=== PATIENT | female | born 1980 | race Caucasian/White ===

== ENCOUNTER 2018-11-30 16:53 | Emergency (ER) | payer SELFPAY ==
--- NOTE | 2018-11-30 17:09 | PDOC ---
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, took motrin with no effect Patient on brief exam:FROM but noted discomfort w/ lat raise Patient ordered for: shoulder xray patient to proceed to the ED Discharge Disposition - Diagnosis Shoulder pain Qualifiers: Chronicity: acute Laterality: right Qualified Code(s): M25.511 - Pain in right shoulder - Discharge Dispostion Disposition: HOME Condition at time of disposition: Stable - Prescriptions Prescriptions: Ibuprofen 600 mg PO Q6H #30 tablet - Referrals Referrals: Justyn Sánchez DO [Staff Physician] - Alex Kelley MD [Staff Physician] - - Patient Instructions Printed Discharge Instructions: DI for Shoulder Pain Additional Instructions: you were evaluated for your shoulder pain today. Please follow up with orthopedics for further management and evaluation of your symptoms. The pain is most likely residual from the dislocation you had 5 weeks ago. Please take Motrin 600 mg every 6 hours for pain. Wear the sling for comfort. Do not sleep with it or shower with it on. Return to the ER for any new or worsening symptoms. - Post Discharge Activity Work/School Note: Back to Work
[2018-11-30 17:19] VITALS: BP 122/66; PULSE 84; TEMP 98.6; BMI 23.6
[2018-11-30] MEDS ORDERED: KETOROLAC TROMETHAMINE 60 MG/2 ML VIAL IM ONE (17:56)
[2018-11-30] MEDS ORDERED: KETOROLAC TROMETHAMINE 60 MG/2 ML VIAL ONE (17:59)
--- NOTE | 2018-11-30 18:01 | PDOC ---
History of Present Illness - General Chief Complaint: Pain, Acute Stated Complaint: R/SHOULDER/PAIN Time Seen by Provider: 11/30/18 17:03 History Source: Patient Exam Limitations: No Limitations Past History - Travel Traveled outside of the country in the last 30 days: No Close contact w/someone who was outside of country & ill: No - Past Medical History Allergies/Adverse Reactions: Allergies Allergy/AdvReac Type Severity Reaction Status Date / Time No Known Allergies Allergy Verified 11/30/18 17:08 Home Medications: Ambulatory Orders Ibuprofen 600 mg PO Q6H #30 tablet 11/30/18 - Suicide/Smoking/Psychosocial Hx Smoking History: Never smoked Review of Systems - Review of Systems Able to Perform ROS?: Yes Comments:: 11/30/18 18:00 CONSTITUTIONAL: Absent: fever, chills, diaphoresis, generalized weakness, malaise, loss of appetite HEENT: Absent: rhinorrhea, nasal congestion, throat pain, throat swelling, difficulty swallowing, mouth swelling, ear pain, eye pain, visual Changes MUSCULOSKELETAL: Present: R shoulder pain Absent: myalgia, joint swelling SKIN: Absent: rash, itching, pallor NEUROLOGIC: Absent: headache, focal weakness or paresthesias, dizziness, unsteady gait, seizure, mental status changes, bladder or bowel incontinence PSYCHIATRIC: Absent: anxiety, depression, suicidal or homicidal ideation, hallucinations. Is the patient limited Amharic proficient: No *Physical Exam - Vital Signs Last Vital Signs Temp Pulse Resp BP Pulse Ox 98.6 F 84 18 122/66 99 11/30/18 17:00 11/30/18 17:00 11/30/18 17:00 11/30/18 17:00 11/30/18 17:00 - Physical Exam Comments: 11/30/18 18:01 GENERAL: The patient is awake, alert, and fully oriented, in no acute distress. HEAD: Normal with no signs of trauma. EYES: Pupils equal, round and reactive to light, extraocular movements intact, sclera anicteric, conjunctiva clear. EXTREMITIES: Full ROM the R shoulder with pain on movement. No TTP at this time. (+) apprehension sign. Normal range of motion, no edema. NEUROLOGICAL: Normal speech, normal gait. PSYCH: Normal mood, normal affect. SKIN: Warm, Dry, normal turgor, no rashes or lesions noted. Medical Decision Making - Medical Decision Making 11/30/18 18:03 the patient is a 38-year-old female with no past medical history who presents to the ER with right shoulder pain. Patient states she was working out in the gym approximately 5 weeks ago when she felt her shoulder pop out She states that shortly after popped out it popped right back in. 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 Since going back to work she notes that she has a lot of pain in the shoulder especially with rotational movements. Denies fevers, chills, numbness, tingling and weakness the affected extremity. Pt is R hand dominant. A/P: Right shoulder pain On exam patient with full range of motion however pain with flexion and extension of the shoulder. Positive apprehension sign test. Pt is neurovascularally intact. X-ray of the right shoulder: no dislocations or fractures Suspect pain d/t reported dislocation 5 weeks ago Toradol given for pain and sling applied Will refer to ortho for further management. DC home I discussed the physical exam findings, ancillary test results and final diagnoses with the patient. I answered all of the patient's questions. The patient was satisfied with the care received and felt comfortable with the discharge plan and treatment plan. The Patient agrees to follow up with the primary care physician/specialist within 24-72 hours. Return precautions were given. *DC/Admit/Observation/Transfer Diagnosis at time of Disposition: Shoulder pain Qualifiers: Chronicity: acute Laterality: right Qualified Code(s): M25.511 - Pain in right shoulder - Discharge Dispostion Disposition: HOME Condition at time of disposition: Stable Decision to Admit order: No - Prescriptions Prescriptions: Ibuprofen 600 mg PO Q6H #30 tablet - Referrals Referrals: Alex Kelley MD [Staff Physician] - Justyn Sánchez DO [Staff Physician] - - Patient Instructions Printed Discharge Instructions: DI for Shoulder Pain Additional Instructions: you were evaluated for your shoulder pain today. Please follow up with orthopedics for further management and evaluation of your symptoms. The pain is most likely residual from the dislocation you had 5 weeks ago. Please take Motrin 600 mg every 6 hours for pain. Wear the sling for comfort. Do not sleep with it or shower with it on. Return to the ER for any new or worsening symptoms. - Post Discharge Activity Forms/Work/School Notes: Back to Work
== END 2018-11-30 18:44 | disposition home or self-care (01) ==
LOC: JERFT 16:53 → JER 16:53 → JERFT 18:44
PROC: 3E0233Z Introduction of Anti-inflammatory into Muscle, Percutaneous Approach (ICD-10-PCS; principal; 2018-11-30)
DX: M25.511 Pain in right shoulder (principal)
CPT/HCPCS: 73030-TC-RT-FY; 99281-25

== ENCOUNTER 2019-09-27 10:21 | Emergency (ER) | payer OTHER ==
--- NOTE | 2019-09-27 10:33 | PDOC ---
History of Present Illness - General Chief Complaint: Pain, Acute Stated Complaint: ABD PAIN Time Seen by Provider: 09/27/19 10:31 History Source: Patient Exam Limitations: No Limitations - History of Present Illness Initial Comments: 39 yo F presents with 3 day history of crampy suprapubic pain associated with gas. She states it has been worsening over the past 3 days, now moderate to severe, suprapubic, radiating to LLQ. No back pain, no f/c. Denies N/V, dysuria, hematuria. Pain is constant, worse with palpation. Past History - Medical History Allergies/Adverse Reactions: Allergies Allergy/AdvReac Type Severity Reaction Status Date / Time No Known Allergies Allergy Verified 09/27/19 10:27 Home Medications: Ambulatory Orders Ibuprofen 600 mg PO Q6H PRN 09/27/19 Phenazopyridine HCl [Pyridium -] 100 mg PO ONCE 09/27/19 COPD: No - Psycho-Social/Smoking History Smoking History: Never smoked Review of Systems - Review of Systems Able to Perform ROS?: Yes Comments:: GENERAL/CONSTITUTIONAL: No fever or chills. No weakness. HEAD, EYES, EARS, NOSE AND THROAT: No change in vision. No ear pain or disch arge. No sore throat. CARDIOVASCULAR: No chest pain or shortness of breath. RESPIRATORY: No cough, wheezing, or hemoptysis. GASTROINTESTINAL: No nausea, vomiting, diarrhea or constipation. +LLQ and michel prapubic abd pain GENITOURINARY: No dysuria, frequency, or change in urination. MUSCULOSKELETAL: No joint or muscle swelling or pain. No neck or back pain. SKIN: No rash. NEUROLOGIC: No headache, vertigo, loss of consciousness, or change in strength/sensation. ENDOCRINE: No increased thirst. No abnormal weight change. HEMATOLOGIC/LYMPHATIC: No anemia, easy bleeding, or history of blood clots. ALLERGIC/IMMUNOLOGIC: No hives or skin allergy. *Physical Exam - Physical Exam GENERAL: Awake, alert, and fully oriented, in no acute distress HEAD: No signs of trauma EYES: PERRLA, EOMI, sclera anicteric, conjunctiva clear ENT: Auricles normal inspection, hearing grossly normal, nares patent, oropharynx clear without exudates. Moist mucosa NECK: Normal ROM, supple, no lymphadenopathy, JVD, or masses LUNGS: Breath sounds equal, clear to auscultation bilaterally. No wheezes, and no crackles HEART: Regular rate and rhythm, normal S1 and S2, no murmurs, rubs or gallops ABDOMEN: Soft, +LLQ tenderness with guarding, normoactive bowel sounds. +Involuntary guarding, no rebound. No masses EXTREMITIES: Normal range of motion, no edema. No clubbing or cyanosis. No cords, erythema, or tenderness NEUROLOGICAL: Cranial nerves II through XII grossly intact. Normal speech, normal gait. Motor and sensation intact SKIN: Warm, dry, normal turgor, no rashes or lesions noted. Medical Decision Making - Medical Decision Making 09/27/19 11:28 DDx includes ruptured ovarian cyst, ovarian torsion, diverticulitis, UTI. 09/27/19 11:40 UA is nitrite+, suggesting UTI. Will obtain sono to r/o torsion. Discharge - Discharge Information Problems reviewed: Yes Clinical Impression/Diagnosis: UTI (urinary tract infection) Qualifiers: Urinary tract infection type: acute cystitis Hematuria presence: without hematuria Qualified Code(s): N30.00 - Acute cystitis without hematuria Condition: Stable Disposition: HOME - Admission No - Follow up/Referral Referrals: Asa Mcguire MD [Primary Care Provider] - - Patient Discharge Instructions - Post Discharge Activity
[2019-09-27 10:34] VITALS: BP 112/78; PULSE 92; TEMP 98.6; BMI 23.6
[2019-09-27 11:25] LABS: HCG,QUALITATIVE URINE NEGATIVE
[2019-09-27 11:26] LABS: EPITHELIAL CELLS MODERATE /hpf; URINE MUCUS 1+
[2019-09-27] MEDS ORDERED: IBUPROFEN 600 MG TABLET (FP) PO ONE ×2 (12:09→12:11)
[2019-09-27] MEDS ORDERED: SULFAMETHOXAZOLE/TRIMETHOPRIM 800MG/160MG D.S. TABLET PO ONE (12:09)
[2019-09-27] MEDS ORDERED: SULFAMETHOXAZOLE/TRIMETHOPRIM 800MG/160MG D.S. TABLET ONE (12:10)
== END 2019-09-27 15:24 | disposition home or self-care (01) ==
LOC: FER 10:21
DX: N30.00 Acute cystitis without hematuria (principal)
CPT/HCPCS: 76817-TC; 76856-TC; 81003; 81015; 84703; 99285-25

== ENCOUNTER 2022-04-23 10:16 | Emergency (ER) | payer OTHER ==
[2022-04-23 10:23] VITALS: RESP 18; TEMP 98.3; BMI 25.4
[2022-04-23 11:29] LABS: BASO % 0.9 % (0-2.0); EOS % 3.6 % (0-4.5); HEMATOCRIT 40.2 % (32.4-45.2); HEMOGLOBIN 13.6 GM/dL (10.7-15.3); LYMPH % 26.9 % (8-40); MCH 28.8 pg (25.7-33.7); MCHC 33.9 g/dl (32.0-36.0); MEAN CELL VOLUME 85.1 fl (80-96); MEAN PLT VOLUME 7.4 fl (7.5-11.1); MONO % 7.3 % (3.8-10.2); NEUT % 61.3 % (42.8-82.8); PLATELET COUNT 352 10^3/uL (134-434); RBC 4.73 M/mm3 (3.60-5.2); RDW 13.5 % (11.6-15.6); WHITE BLOOD COUNT 6.1 K/mm3 (4.0-10.0)
[2022-04-23 11:41] LABS: CALCIUM 9.6 mg/dL (8.5-10.1)
[2022-04-23 11:42] LABS: BLOOD UREA NITROGEN 9.5 mg/dL (7-18)
[2022-04-23 11:44] LABS: CREATININE 0.6 mg/dL (0.55-1.3)
[2022-04-23 11:46] LABS: BILIRUBIN,TOTAL 0.8 mg/dL (0.2-1); TOT PROT 7.9 g/dl (6.4-8.2)
[2022-04-23 12:06] LABS: PH,URINE 8.5 (5.0-8.0); URINE APPEARANCE CLEAR; URINE BILIRUBIN NEGATIVE (NEGATIVE); URINE COLOR YELLOW; URINE GLUCOSE (UA) NEGATIVE (NEGATIVE); URINE KETONE NEGATIVE (NEGATIVE); URINE LEUK ESTERASE NEGATIVE (NEGATIVE); URINE NITRITE NEGATIVE (NEGATIVE); URINE PROTEIN NEGATIVE (NEGATIVE); URINE UROBILINOGEN 0.2 mg/dL (0.2-1.0)
[2022-04-23 12:09] LABS: HCG,QUALITATIVE URINE Negative
[2022-04-23] MEDS ORDERED: morphine CARPU-JECT 4 MG/1 ML DISP.SYRIN IVPUSH ONE (13:20)
[2022-04-23] MEDS ORDERED: SODIUM CHLORIDE 0.9% 500 ML INFUS.BAG IV ONE (13:20)
[2022-04-23] MEDS ORDERED: ONDANSETRON 4 MG/2 ML VIAL IVPUSH ONE (13:21)
[2022-04-23] MEDS ORDERED: morphine SULFATE 4 MG/ML VIAL ONE (13:26)
[2022-04-23] MEDS ORDERED: ONDANSETRON 4 MG/2 ML VIAL ONE (13:26)
[2022-04-23 16:51] VITALS: BP 105/72; PULSE 62
== END 2022-04-23 18:04 | disposition home or self-care (01) ==
LOC: JER 10:16
PROC: 3E033NZ Introduction of Analgesics, Hypnotics, Sedatives into Peripheral Vein, Percutaneous Approach (ICD-10-PCS; principal; 2022-04-23)
PROC: 3E033GC Introduction of Other Therapeutic Substance into Peripheral Vein, Percutaneous Approach (ICD-10-PCS; 2022-04-23)
DX: R10.32 Left lower quadrant pain (principal); R10.31 Right lower quadrant pain
CPT/HCPCS: 36415; 74177-TC; 76830-TC; 80053; 81003; 83690; 84703; 85025; 86850; 86900; 86901; 87086; 99285-25; Q9967

== ENCOUNTER 2023-02-24 18:05 | Emergency (ER) | payer OTHER ==
[2023-02-24 18:11] VITALS: BP 125/79; PULSE 96; RESP 16; TEMP 98.2; BMI 25.0
[2023-02-24] MEDS ORDERED: ACETAMINOPHEN 1000 MG/100 ML BAG IVPB ONE (18:25)
[2023-02-24] MEDS ORDERED: ONDANSETRON 4 MG/2 ML VIAL IVPUSH ONE (18:25)
[2023-02-24] MEDS ORDERED: MAG HYDROX/AL HYDROX/SIMETH 30 ML UNIT-DOSE CUP PO ONE (18:25)
[2023-02-24] MEDS ORDERED: FAMOTIDINE 20 MG/50 ML IVPB 20 MG/50 ML MG IVPB ONE (18:25)
[2023-02-24] MEDS ORDERED: ONDANSETRON 4 MG/2 ML VIAL ONE (19:00)
[2023-02-24] MEDS ORDERED: MAG HYDROX/AL HYDROX/SIMETH 30 ML UNIT-DOSE CUP ONE (19:00)
[2023-02-24] MEDS ORDERED: ACETAMINOPHEN INJECTION 100 ML IVPB ONE (19:00)
[2023-02-24] MEDS ORDERED: FAMOTIDINE 10 MG/ML VIAL IVPB ONE (19:01)
[2023-02-24 19:32] LABS: BASO % 0.7 % (0-2.0); EOS % 1.6 % (0-4.5); HEMATOCRIT 38.9 % (32.4-45.2); HEMOGLOBIN 12.8 GM/dL (10.7-15.3); LYMPH % 17.8 % (8-40); MCH 28.1 pg (25.7-33.7); MCHC 32.9 g/dl (32.0-36.0); MEAN CELL VOLUME 85.4 fl (80-96); MEAN PLT VOLUME 7.3 fl (7.5-11.1); NEUT % 72.9 % (42.8-82.8); PLATELET COUNT 366 10^3/uL (134-434); RBC 4.56 M/mm3 (3.60-5.2); RDW 13.6 % (11.6-15.6); WHITE BLOOD COUNT 8.8 K/mm3 (4.0-10.0)
[2023-02-24 19:56] LABS: POTASSIUM 4.1 mmol/L (3.5-5.1)
[2023-02-24 19:59] LABS: ALBUMIN 3.9 g/dl (3.4-5.0); BLOOD UREA NITROGEN 9.2 mg/dL (7-18); CALCIUM 9.2 mg/dL (8.5-10.1)
[2023-02-24 20:02] LABS: CREATININE 0.8 mg/dL (0.55-1.3)
[2023-02-24 20:04] LABS: BILIRUBIN,TOTAL 0.4 mg/dL (0.2-1); TOT PROT 7.2 g/dl (6.4-8.2)
== END 2023-02-24 22:33 | disposition home or self-care (01) ==
LOC: JER 18:05
PROC: 3E033GC Introduction of Other Therapeutic Substance into Peripheral Vein, Percutaneous Approach (ICD-10-PCS; principal; 2023-02-24)
PROC: 3E033NZ Introduction of Analgesics, Hypnotics, Sedatives into Peripheral Vein, Percutaneous Approach (ICD-10-PCS; 2023-02-24)
PROC: 3E033GC Introduction of Other Therapeutic Substance into Peripheral Vein, Percutaneous Approach (ICD-10-PCS; 2023-02-24)
DX: R10.11 Right upper quadrant pain (principal); R11.0 Nausea; R09.89 Other specified symptoms and signs involving the circulatory and respiratory systems
CPT/HCPCS: 36415; 76705-TC; 80053; 83690; 84703; 85025; 99284-25

== ENCOUNTER 2023-12-11 13:34 | Emergency (ER) | payer OTHER ==
[2023-12-11 14:05] VITALS: BP 119/75; PULSE 93; RESP 18; TEMP 98.1; BMI 23.3
[2023-12-11] MEDS ORDERED: ACETAMINOPHEN INJECTION 100 ML ONE (16:16)
[2023-12-11] MEDS ORDERED: FAMOTIDINE 20 MG/50 ML IVPB 20 MG/50 ML MG IVPB ONE (16:16)
[2023-12-11] MEDS ORDERED: ONDANSETRON 4 MG/2 ML VIAL ONE (16:25)
[2023-12-11] MEDS: ACETAMINOPHEN 1000 MG/100 ML BAG IVPB ONE (16:54)
[2023-12-11] MEDS: ONDANSETRON 4 MG/2 ML VIAL IVPUSH ONE (16:54)
[2023-12-11] MEDS: FAMOTIDINE 20 MG/50 ML IVPB 20 MG/50 ML MG IVPB ONE (16:58)
[2023-12-11 17:02] LABS: BASO % 0.3 % (0-2.0); EOS % 0.7 % (0-4.5); HEMATOCRIT 40.4 % (32.4-45.2); HEMOGLOBIN 13.5 GM/dL (10.7-15.3); LYMPH % 16.3 % (8-40); MCH 28.1 pg (25.7-33.7); MCHC 33.4 g/dl (32.0-36.0); MEAN CELL VOLUME 84.1 fl (80-96); MEAN PLT VOLUME 7.5 fl (7.5-11.1); MONO % 8.2 % (3.8-10.2); NEUT % 74.5 % (42.8-82.8); PLATELET COUNT 375 10^3/uL (134-434); RDW 13.9 % (11.6-15.6); WHITE BLOOD COUNT 9.6 K/mm3 (4.0-10.0)
[2023-12-11 17:38] LABS: BLOOD UREA NITROGEN 8.2 mg/dL (7-18); CALCIUM 9.6 mg/dL (8.5-10.1)
[2023-12-11 17:39] LABS: ALBUMIN 4.4 g/dl (3.4-5.0)
[2023-12-11 17:42] LABS: BILIRUBIN,TOTAL 0.9 mg/dL (0.2-1); CREATININE 0.6 mg/dL (0.55-1.3)
[2023-12-11 17:45] LABS: HCG,QUALITATIVE URINE Negative
[2023-12-11 17:47] LABS: EPI CELLS 12 /uL (0-25.1); HYALINE CASTS 0 /uL (0-3.1); PH,URINE 5.5 (5.0-8.0); URINE APPEARANCE CLEAR; URINE BACTERIA 50 /uL (0-1359); URINE BILIRUBIN NEGATIVE (NEGATIVE); URINE COLOR YELLOW; URINE GLUCOSE (UA) NEGATIVE (NEGATIVE); URINE KETONE 2+ (NEGATIVE); URINE LEUK ESTERASE NEGATIVE (NEGATIVE); URINE NITRITE NEGATIVE (NEGATIVE); URINE PROTEIN NEGATIVE (NEGATIVE); URINE RBC 21 /uL (0-23.9); URINE UROBILINOGEN 0.2 mg/dL (0.2-1.0); URINE WBC 5 /uL (0-25.8)
[2023-12-11 18:28] LABS: HIV INTERPRETATION NEGATIVE (NEGATIVE)
== END 2023-12-11 19:55 | disposition home or self-care (01) ==
LOC: JERFT 13:34
PROC: 3E033GC Introduction of Other Therapeutic Substance into Peripheral Vein, Percutaneous Approach (ICD-10-PCS; principal; 2023-12-11)
PROC: 3E033GC Introduction of Other Therapeutic Substance into Peripheral Vein, Percutaneous Approach (ICD-10-PCS; 2023-12-11)
PROC: 3E033NZ Introduction of Analgesics, Hypnotics, Sedatives into Peripheral Vein, Percutaneous Approach (ICD-10-PCS; 2023-12-11)
DX: K59.00 Constipation, unspecified (principal); K76.9 Liver disease, unspecified; R10.9 Unspecified abdominal pain; R11.0 Nausea
CPT/HCPCS: 36415; 74177-TC; 80053; 81003; 83690; 84703; 85025; 86803; 87086; 87389; 96365; 96375; 99285-25; J0131; Q9967